=== PATIENT | male | born 1980 | race Caucasian/White ===

== ENCOUNTER 2017-12-04 16:36 | Emergency (ER) | payer SELFPAY ==
[~2017-12-04] VITALS: Ht 185.4 cm; Wt 64.0 kg
[~2017-12-04 16:36] MED LIST: Z.0.NO CURRENT MEDS
[2017-12-04 16:42] VITALS: PULSE 82; RESP 16; TEMP 98.3; O2SAT 100
[2017-12-04] MEDS ORDERED: BACT800T5 PO (17:46)
--- NOTE | 2017-12-04 17:47 | PD ---
HPI Chief Complaint: Skin Problem Time Seen by Provider: 16:53 (Chantel Lundberg) Time Seen by Provider: 17:25 (Dane Lentz MD) Travel History International Travel<30 days: No Contact w/Intl Traveler<30days: No Traveled to known affect area: No (Chantel Lundberg) International Travel<30 days: No Contact w/Intl Traveler<30days: No Traveled to known affect area: No (Dane Lentz MD) History of Present Illness HPI 37-year-old male here with abscess to the left buttocks 3 days. Denies fever or chills. No drainage from the site. Symptom severity is moderate. Patient has pain with palpation and sitting. Slightly relieved with rest. (Chantel Lundberg) HPI Patient was seen by my family assistant. Please see her dictation. (Dane Lentz MD) PFSH Past Medical History Medical History: Denies Significant Hx Diminished Hearing: No Tetanus Vaccination: < 5 Years Influenza Vaccination: No (Chantel Lundberg) Past Surgical History Surgical History: No Previous Surgery (Chantel Lundberg) Social History Alcohol Use: No Tobacco Use: Yes (11/28 PPD ) Substance Use: No (Chantel Lundberg) Allergies-Medications (Allergen,Severity, Reaction): Coded Allergies: No Known Allergies (Unverified Adverse Reaction, Unknown, 12/04/17) Reported Meds & Prescriptions Reported Meds & Active Scripts Active Bactrim DS (Sulfamethoxazole-Trimethoprim) 800-160 Mg Tab 1 Tab PO BID (Dane Lentz MD) Review of Systems Except as stated in HPI: all other systems reviewed are Neg General / Constitutional: No: Fever (Chantel Lundberg) General / Constitutional: No: Fever Eyes: No: Visual changes HENT: No: Headaches Cardiovascular: No: Chest Pain or Discomfort Respiratory: No: Shortness of Breath Gastrointestinal: No: Abdominal Pain Genitourinary: No: Dysuria Musculoskeletal: No: Pain Skin: No Rash Neurologic: No: Weakness Psychiatric: No: Depression Endocrine: No: Polydipsia Hematologic/Lymphatic: No: Easy Bruising (Dane Lentz MD) Physical Exam Narrative GENERAL: Alert and nontoxic-appearing male SKIN: 2 cm fluctuant abscess left buttocks. HEAD: Normocephalic. EYES: No injection or drainage. NECK: Supple, trachea midline. CARDIOVASCULAR: Regular rate and rhythm RESPIRATORY: Breath sounds equal bilaterally. No accessory muscle use. GASTROINTESTINAL: Abdomen soft, non-tender, nondistended. (Chantel Lundberg) Narrative Patient was seen by my family assistant. Please see her dictation. (Dane Lentz MD) Data Data Last Documented VS Vital Signs Date Time Temp Pulse Resp B/P (MAP) Pulse Ox O2 Delivery O2 Flow Rate FiO2 12/04/17 16:42 98.3 82 16 100 (Dane Lentz MD) Orders Orders Ed Discharge Order (12/04/17 17:50) (Dane Lentz MD) [facility] Medical Decision Making Medical Screen Exam Complete: Yes Emergency Medical Condition: Yes Differential Diagnosis Abscess, inflamed sebaceous cyst, cellulitis Narrative Course 37-year-old male here with abscess to the left buttocks. Incision and drainage performed. Patient tolerated procedure well. Patient on antibiotics and instructed to follow-up with his primary doctor. (Chantel Lundberg) Medical Screen Exam Complete: Yes Emergency Medical Condition: Yes Differential Diagnosis Please see my family assistant dictation. Narrative Course Patient was seen by my family assistant. Please see her dictation. (Dane Lentz MD) Procedures Procedure Narrative INCISION AND DRAINAGE OF ABSCESS: The area was prepped and was sterilely draped. A subcutaneous wheal of 1 % Xylocaine used to anesthetize the area properly. A number 11 scalpel was used to make a 0.5 -cm incision across the area of the abscess. The abscess was drained, complex loculations were broken down, and irrigated with normal saline. Sterile dressing applied. (Chantel Lundberg) Diagnosis Primary Impression: Abscess Referrals: Primary Care Physician Scripts Sulfamethoxazole-Trimethoprim (Bactrim DS) 800-160 Mg Tab 1 TAB PO BID for Infection, #20 TAB 0 Refills Prov: Chantel Lundberg 12/04/17 Disposition: 01 DISCHARGE HOME Condition: Stable Chantel Lundberg Dec 04, 2017 17:47 Dane Lentz MD Dec 05, 2017 18:46
== END 2017-12-04 17:52 | disposition home or self-care (01) ==
LOC: PHEFT 16:36
DX: L02.31 Cutaneous abscess of buttock (principal); F17.200 Nicotine dependence, unspecified, uncomplicated
CPT/HCPCS: 10060